=== PATIENT | female | born 1930 | race Caucasian/White ===

== ENCOUNTER 2018-01-06 11:25 | Emergency (ER) | payer MEDICARE, OTHER ==
[2018-01-06] MEDS ORDERED: Adacel (T-DAP) 0.5 ML VIAL ONE (11:37)
[2018-01-06] MEDS ORDERED: Bacitracin Zinc 1 Packet ONE (11:39)
[2018-01-06] MEDS ORDERED: traMADol HCl 50 MG TAB ONE (12:05)
--- NOTE | 2018-01-06 12:10 | RAD ---
LEFT KNEE 4 VIEWS: Date: 01/06/18 HISTORY: Trauma. Injury. Left knee pain. FINDINGS/IMPRESSION: There are postop changes of total knee arthroplasty in good position and alignment. No acute fracture or dislocation is seen. POS: [facility]
== END 2018-01-06 12:05 | disposition home or self-care (01) ==
LOC: SCSER 11:25
DX: S81.812A Laceration without foreign body, left lower leg, initial encounter (principal); S80.02XA Contusion of left knee, initial encounter; E03.9 Hypothyroidism, unspecified; I11.0 Hypertensive heart disease with heart failure; I50.9 Heart failure, unspecified; M19.90 Unspecified osteoarthritis, unspecified site; J45.909 Unspecified asthma, uncomplicated; W20.8XXA Other cause of strike by thrown, projected or falling object, initial encounter
CPT/HCPCS: 90471; 90715

== ENCOUNTER 2018-01-10 11:42 | Emergency (ER) | payer MEDICARE, OTHER ==
[~2018-01-10 11:42] MED LIST: Iopamidol 370 76% 100 ML VIAL ONE
[2018-01-10] MEDS ORDERED: Pantoprazole 40 MG VIAL ONE (12:22)
[2018-01-10 12:33] LABS: #Basophils 0.1 thou/uL (0.0-0.2); #Eosinphils 0.5 thou/uL (0.0-0.7); #Lymphocytes 1.5 thou/uL (1.20-3.40); #Monocytes 0.9 thou/uL (0.11-0.59); %Basophils 1.3 % (0.0-1.0); %Eosinophils 5.2 % (0.0-10.0); %Lymphocytes 15.2 % (21.0-51.0); %Monocytes 8.6 % (0.0-10.0); %Neutrophils 69.8 % (42.0-75.0); Hemoglobin 10.4 g/dL (12.0-16.0); Mean Corpuscular HGB CONC 32.7 g/dL (32.0-36.0); Mean Corpuscular Hemoglobin 31.1 pg (27.0-31.0); Mean Corpuscular Volume 95.2 fl (81.0-99.0); Mean Platelet Volume 8.3 fL (7.4-10.4); Platelet Count 217 thou/uL (130-400); RBC Distribution Width 13.3 % (11.5-14.5); Red Blood Cell (RBC) Count 3.33 mill/uL (4.20-5.40); White Blood Cell (WBC) Count 10.1 thou/uL (4.8-10.8)
[2018-01-10 12:41] LABS: ALT (SGPT) 7 U/L (8-55); AST (SGOT) 15 U/L (5-34); Albumin 3.7 g/dL (3.4-4.8); Alkaline Phosphatase 55 U/L (40-150); Anion Gap 15 mmol/L (10-20); BUN (Urea Nitrogen) 20 mg/dL (9.8-20.1); Bilirubin, Total 0.9 mg/dL (0.2-1.2); Calc. Creatinine Clearance 0 mL/min (70-130); Carbon Dioxide 24 mmol/L (23-31); Chloride 103 mmol/L (98-107); Estimated GFR-MDRD 67; Glucose 101 mg/dL (83-110); Potassium 4.1 mmol/L (3.5-5.1); Protein, Total 6.7 g/dL (6.0-8.3); Sodium 138 mmol/L (136-145)
[2018-01-10 12:44] LABS: CKMB 0.9 ng/mL (0-6.6); Troponin I Less than 0.010 ng/mL (< 0.028)
[2018-01-10] MEDS ORDERED: metroNIDAZOLE 500 MG TAB ONE (14:29)
[2018-01-10] MEDS ORDERED: Ciprofloxacin 500 MG TAB ONE (14:29)
--- NOTE | 2018-01-10 14:31 | CT ---
CT ABDOMEN AND PELVIS WITH IV CONTRAST: Date: 01/10/18 INDICATION: Lower abdominal pain with nausea and diarrhea. FINDINGS: There is prominent wall thickening involving the rectum and sigmoid colon, as well as portions of the descending colon, suspicious for proctocolitis of infectious or inflammatory etiology. No drainable fluid collection is evident. There is no evidence of small bowel obstruction. There is a calcified granuloma in the right lower lobe. There is bibasilar interstitial fibrosis. Gal lbladder is surgically absent. There is intrahepatic and extrahepatic biliary ductal dilatation, like ly related to patient's post cholecystectomy state. There are calcified granuloma within the spleen a nd liver. Adrenal glands and kidneys appear within normal limits. There is a right extrarenal pelvis. There are scattered moderate to severe vascular calcifications involving the abdominopelvic vasculat ure. No drainable fluid collection is grossly evident within the abdomen. There is diffuse osteopenia. There is prominent dextroscoliosis of the lumbar spine. IMPRESSION: 1. Findings of proctocolitis of infectious or inflammatory etiology. 2. No drainable fluid collection. 3. Some bibasilar interstitial fibrotic change. 4. Cholecystectomy. 5. Scattered vascular calcification involving the abdominopelvic vasculature. 6. Prominent dextroscoliosis of the lumbar spine with scattered degenerative change. POS: [facility]
[2018-01-10] MEDS ORDERED: Sulfameth/Trimethoprim DS 800-160mg TAB ONE (14:35)
== END 2018-01-10 14:47 | disposition home or self-care (01) ==
LOC: SCSER 11:42
DX: K51.30 Ulcerative (chronic) rectosigmoiditis without complications (principal); E78.5 Hyperlipidemia, unspecified; E03.9 Hypothyroidism, unspecified; I10 Essential (primary) hypertension; M19.90 Unspecified osteoarthritis, unspecified site; J45.909 Unspecified asthma, uncomplicated; Z79.82 Long term (current) use of aspirin; Z79.02 Long term (current) use of antithrombotics/antiplatelets; Z79.899 Other long term (current) drug therapy
CPT/HCPCS: 36415; 74177; 80053; 82553; 84484; 85025; 86850; 86900; 86901; 93005; 96361; 96374; C9113

== ENCOUNTER 2018-02-26 11:57 | Emergency (ER) | payer MEDICARE, OTHER ==
--- NOTE | 2018-02-26 12:59 | RAD ---
TWO VIEWS LEFT KNEE: Comparison: 03-26-17 History: Fall last night with left knee pain. FINDINGS: Two views of the left knee shows the patient to be status post left knee arthroplasty without perihar dware lucency of acute fracture. No knee effusion is seen. Mild diffuse soft tissue swelling is seen. IMPRESSION: No evidence of acute osseous abnormality. POS: [facility]
--- NOTE | 2018-02-26 13:03 | RAD ---
TWO VIEWS RIGHT KNEE: Comparison: None. History: Right knee pain after fall last night. FINDINGS: Two views of the right knee shows no evidence of acute fracture or dislocation. The patient is status post right knee arthroplasty without perihardware lucency or fracture. Mild diffuse soft tissue swel ling is seen. IMPRESSION: No evidence of acute osseous abnormality. POS: [facility]
== END 2018-02-26 13:00 | disposition home or self-care (01) ==
LOC: SCSER 11:57
DX: S51.812A Laceration without foreign body of left forearm, initial encounter (principal); S80.02XA Contusion of left knee, initial encounter; S80.01XA Contusion of right knee, initial encounter; E78.5 Hyperlipidemia, unspecified; E03.9 Hypothyroidism, unspecified; I10 Essential (primary) hypertension; M19.90 Unspecified osteoarthritis, unspecified site; J45.909 Unspecified asthma, uncomplicated; Z79.899 Other long term (current) drug therapy; Z79.82 Long term (current) use of aspirin; W18.30XA Fall on same level, unspecified, initial encounter
CPT/HCPCS: 12002

== ENCOUNTER 2019-01-13 07:40 | Outpatient (CLI) | payer MEDICARE, OTHER ==
--- NOTE | 2019-01-13 08:08 | ULT ---
BILATERAL CAROTID DUPLEX ULTRASOUND: HISTORY: Carotid bruit TECHNIQUE: Grayscale, color-flow and spectral Doppler ultrasound imaging of the extracranial carotid artery syst ems and vertebral arteries was performed bilaterally. FINDINGS: There is mild partially calcified atherosclerotic plaque seen within the distal right common carotid artery and right carotid bulb. There is mild intimal thickening seen diffusely throughout the left common carotid artery with an within the left proximal internal carotid artery. The peak systolic velocity in the right ICA measures 69.7 cm/s. The peak systolic velocity in the ri ght CCA measures 75.0 cm/s. The peak systolic velocity in the left ICA measures 42.4 cm/s. The peak systolic velocity in the l eft CCA measures 64.7 cm/s. The right IC/CC ration is0.93. The left IC/CC ratio is 0.66. Vertebral flow: antegrade, bilaterally. . IMPRESSION: No hemodynamically significant stenosis of Both ICAs.
[2019-01-13] MEDS ORDERED: Gadobenate Dimeglumine 529 MG/1 ML (20ML VIAL) ONE (09:00)
--- NOTE | 2019-01-13 09:23 | MRI ---
BRAIN MRI WITH AND WITHOUT CONTRAST: Date: 01/13/19 COMPARISON: None. HISTORY: Memory loss, cognitive impairment. TECHNIQUE: Multiplanar, multisequence MR imaging of the brain obtained with and without contrast. FINDINGS: The diffusion-weighted imaging demonstrates no evidence for acute infarction. The axial gradient echo imaging demonstrates no evidence for intracranial hemorrhage. There is mild mucosal thickening involving the frontal sinuses bilaterally, the anterior ethmoid air cells, and the right mastoid air cells. Arterial flow-voids at the axial level of the skull base appe ar grossly unremarkable on the T2-weighted imaging. There is mild cerebral volume loss with a few sca ttered foci of increased T2 and FLAIR signal within the white matter suggesting minimal small vessel disease. There is no midline shift or mass effect. No ventricular enlargement. The postcontrast imaging demonstrates a small focus of extra-axial enhancement in the anterior left f rontal region near the vertex measuring 9.0 mm, most consistent with a subcentimeter left frontal lob e meningioma. IMPRESSION: No acute findings. Subcentimeter left frontal meningioma suspected. POS: [facility]
== END 2019-01-13 07:41 | disposition home or self-care (01) ==
LOC: SCSMRI 07:40
PROVIDERS: ATTEND Psychiatry & Neurology Neurology
DX: G31.84 Mild cognitive impairment of uncertain or unknown etiology (principal); R09.89 Other specified symptoms and signs involving the circulatory and respiratory systems
CPT/HCPCS: 70553; 82565; 93880; A9577

== ENCOUNTER 2019-02-25 15:55 | Emergency (ER) | payer MEDICARE, OTHER ==
--- NOTE | 2019-02-25 17:00 | RAD ---
Exam:4 views right knee HISTORY: Pain COMPARISON: 08/08/2014 FINDINGS: Uncomplicated arthroplasty. No perihardware lucency. No fracture. There is a small suprapat ellar. IMPRESSION: Small suprapatellar effusion. Correlate clinically.
== END 2019-02-25 17:45 | disposition home or self-care (01) ==
LOC: SCSER 15:55
DX: M25.461 Effusion, right knee (principal); E78.5 Hyperlipidemia, unspecified; E03.9 Hypothyroidism, unspecified; I10 Essential (primary) hypertension; M19.90 Unspecified osteoarthritis, unspecified site; Z79.891 Long term (current) use of opiate analgesic; Z79.899 Other long term (current) drug therapy; Z79.82 Long term (current) use of aspirin
CPT/HCPCS: 20610; 87070; 87205

== ENCOUNTER 2019-03-13 19:00 | Emergency (ER) | payer MEDICARE, OTHER ==
[2019-03-13] MEDS ORDERED: Lidocaine 1% (PF) 30 ML VIAL ONE (19:54)
[2019-03-13] MEDS ORDERED: traMADol HCl 50 MG TAB ONE (20:21)
[2019-03-13] MEDS ORDERED: cloNIDine 0.1 MG TAB ONE (20:34)
[2019-03-13] MEDS ORDERED: Morphine 4 MG/ML VIAL ONE (21:20)
[2019-03-13 23:08] LABS: #Monocytes 0.4 thou/uL (0.11-0.59); #Neutrophils 6.7 thou/uL (1.40-6.50); %Basophils 0.4 % (0.0-1.0); %Eosinophils 0.2 % (0.0-10.0); %Lymphocytes 12.8 % (21.0-51.0); %Monocytes 4.5 % (0.0-10.0); %Neutrophils 82.1 % (42.0-75.0); Mean Corpuscular HGB CONC 31.4 g/dL (32.0-36.0); Mean Corpuscular Hemoglobin 31.2 pg (27.0-31.0); Mean Corpuscular Volume 99.5 fL (78.0-98.0); Mean Platelet Volume 7.9 fL (7.4-10.4); Platelet Count 239 thou/uL (130-400); RBC Distribution Width 12.7 % (11.5-14.5); Red Blood Cell (RBC) Count 4.16 mill/uL (4.20-5.40); White Blood Cell (WBC) Count 8.2 thou/uL (4.8-10.8)
[2019-03-13 23:25] LABS: ALT (SGPT) 9 U/L (8-55); AST (SGOT) 19 U/L (5-34); Albumin 4.3 g/dL (3.4-4.8); Alkaline Phosphatase 61 U/L (40-150); Anion Gap 14 mmol/L (10-20); BUN (Urea Nitrogen) 25 mg/dL (9.8-20.1); Bilirubin, Total 0.5 mg/dL (0.2-1.2); Calc. Creatinine Clearance 0 mL/min (70-130); Calcium 9.4 mg/dL (7.8-10.44); Carbon Dioxide 20 mmol/L (23-31); Chloride 107 mmol/L (98-107); Estimated GFR-MDRD 56; Globulin 2.8 g/dL (2.4-3.5); Glucose 120 mg/dL (83-110); Potassium 4.4 mmol/L (3.5-5.1); Protein, Total 7.1 g/dL (6.0-8.3); Sodium 137 mmol/L (136-145)
--- NOTE | 2019-03-13 23:42 | RAD ---
Exam:Right knee 4 views HISTORY: Pain. COMPARISON: 02/25/2019 FINDINGS: Stable arthroplasty. No perihardware lucency. No definite fracture. There does appear to be a significant joint effusion, greater than the previous exam. IMPRESSION: Worsening joint effusion. Correlate clinically.
[2019-03-14] MEDS ORDERED: Lidocaine 1% (PF) 30 ML VIAL ONE
[2019-03-14 01:38] LABS: BF Color Red; Body Fluid Source Synovial Fluid; Clarity Cloudy/Turbid (Clear); Tube # 1
[2019-03-14 01:39] LABS: RBC Count-Automated 5010000 /cumm
[2019-03-14 03:02] LABS: BF WBC/Nonhematics Ct. - Manua 2222 /cumm
[2019-03-14 03:18] LABS: BF Segmented Neutrophils 86 %; Cell Count Non Hematic 7 %; Lymphocytes 7 %
== END 2019-03-14 00:45 | disposition home or self-care (01) ==
LOC: ERS 19:00
DX: M79.81 Nontraumatic hematoma of soft tissue (principal); I10 Essential (primary) hypertension; E78.5 Hyperlipidemia, unspecified; E03.9 Hypothyroidism, unspecified; M19.90 Unspecified osteoarthritis, unspecified site; J45.909 Unspecified asthma, uncomplicated; Z79.01 Long term (current) use of anticoagulants; Z79.899 Other long term (current) drug therapy
CPT/HCPCS: 20610; 36415; 80053; 85025; 85060; 85652; 86140; 89051; 96372; J2001; J2270

== ENCOUNTER 2019-06-10 14:02 | Emergency (ER) | payer MEDICARE, OTHER ==
--- NOTE | 2019-06-10 14:45 | RAD ---
2 VIEWS LEFT HIP: Date: 06/10/19 COMPARISON: None. HISTORY: Tripped and fell with left hip pain. FINDINGS: 2 views of the left hip show no evidence of acute fracture or dislocation. No degenerative changes ar e seen. No soft tissue swelling is seen. Degenerative changes are seen in the lumbar spine. IMPRESSION: No evidence of acute osseous abnormality. POS: [facility]
== END 2019-06-10 14:45 | disposition home or self-care (01) ==
LOC: SCSER 14:02
DX: S70.02XA Contusion of left hip, initial encounter (principal); S61.402A Unspecified open wound of left hand, initial encounter; E78.5 Hyperlipidemia, unspecified; E03.9 Hypothyroidism, unspecified; I10 Essential (primary) hypertension; Z79.899 Other long term (current) drug therapy; Z79.82 Long term (current) use of aspirin; W18.30XA Fall on same level, unspecified, initial encounter

== ENCOUNTER 2020-02-29 09:47 | Emergency (ER) | payer MEDICARE, OTHER ==
--- NOTE | 2020-02-29 10:49 | RAD ---
EXAM: 4 views of the right knee HISTORY: Knee pain after fall COMPARISON: 03/13/2019 FINDINGS: A small knee effusion is seen. The patient has a right knee prosthesis without perihardware lucency or fracture. There is no evidence of acute fracture or dislocation. Mild diffuse soft tissue swelling is present. IMPRESSION: No evidence of acute osseous abnormality.
--- NOTE | 2020-02-29 10:49 | RAD ---
EXAM: Single view of the chest HISTORY: Fall COMPARISON: 12/22/1959 FINDINGS: Single view of the chest shows a normal sized cardiomediastinal silhouette. There is no jerod dence of consolidation, mass, or pleural effusion. Post surgical changes are seen in both shoulders. IMPRESSION: No evidence of acute cardiopulmonary disease
[2020-02-29 10:55] LABS: #Basophils 0.1 thou/uL (0.0-0.2); #Eosinphils 0.3 thou/uL (0.0-0.7); #Lymphocytes 1.1 thou/uL (1.20-3.40); #Monocytes 0.6 thou/uL (0.11-0.59); #Neutrophils 4.1 thou/uL (1.40-6.50); %Basophils 1.5 % (0.0-1.0); %Eosinophils 4.5 % (0.0-10.0); %Lymphocytes 17.8 % (21.0-51.0); %Neutrophils 66.3 % (42.0-75.0); Hemoglobin 12.6 g/dL (12.0-16.0); Mean Corpuscular Hemoglobin 31.3 pg (27.0-31.0); Mean Corpuscular Volume 97.8 fL (78.0-98.0); Mean Platelet Volume 8.4 fL (7.4-10.4); Platelet Count 233 thou/uL (130-400); RBC Distribution Width 12.8 % (11.5-14.5); Red Blood Cell (RBC) Count 4.04 mill/uL (4.20-5.40); White Blood Cell (WBC) Count 6.1 thou/uL (4.8-10.8)
[2020-02-29] MEDS ORDERED: Fentanyl 100 MCG/2 ML VIAL ONE (10:56)
[2020-02-29 11:21] LABS: ALT (SGPT) Less than 7 U/L (8-55); AST (SGOT) 14 U/L (5-34); Albumin 3.9 g/dL (3.4-4.8); Alkaline Phosphatase 54 U/L (40-110); Anion Gap 13 mmol/L (10-20); BUN (Urea Nitrogen) 20 mg/dL (9.8-20.1); Bilirubin, Total 0.4 mg/dL (0.2-1.2); Calc. Creatinine Clearance 0 mL/min (70-130); Calcium 8.9 mg/dL (7.8-10.44); Carbon Dioxide 25 mmol/L (23-31); Chloride 105 mmol/L (98-107); Estimated GFR-MDRD 66; Globulin 2.5 g/dL (2.4-3.5); Glucose 92 mg/dL (83-110); Potassium 4.8 mmol/L (3.5-5.1); Protein, Total 6.4 g/dL (6.0-8.3); Sodium 138 mmol/L (136-145)
[2020-02-29] MEDS ORDERED: HYDROcodone/Acetaminophen 10/325 mg Tablet ONE (12:57)
== END 2020-02-29 16:22 ==
LOC: ERS 09:47
DX: M25.561 Pain in right knee (principal); E03.9 Hypothyroidism, unspecified; I10 Essential (primary) hypertension; M19.90 Unspecified osteoarthritis, unspecified site; J45.909 Unspecified asthma, uncomplicated; W18.30XA Fall on same level, unspecified, initial encounter
CPT/HCPCS: 36415; 71045; 80053; 84484; 85025; 93005; 94760; 96374; J3010